=== PATIENT | female | born 1990 | race American Indian/Alaskan Native ===

== ENCOUNTER 2020-12-04 15:26 | Emergency (ER) | payer SELFPAY ==
[2020-12-04 16:56] VITALS: BP 131/82
--- NOTE | 2020-12-04 17:28 | Emergency Department Report ---
ED Lower Extremity HPI - General Chief Complaint: Extremity Injury, Lower Stated Complaint: LT ANKLE PAIN Time Seen by Provider: 12/04/20 17:25 Source: patient Mode of arrival: Ambulatory Limitations: No Limitations - History of Present Illness Initial Comments: Patient is a 30-year-old female presents emergency room complaints of a left ankle injury that occurred last night. Patient states that she was going up the stairs outside and she tripped and fell down approximately 3 steps. She states that she had a inversion injury of her ankle. She states that she felt her ankle "crack". She has associated left ankle pain and swelling. She is ambulatory but states that she has pain with ambulation. She denies any numbness or weakness. She denies ever injuring the past. No past medical history. No allergies medications. Last menstrual cycle ended last month, she denies any possibility of . - Related Data Previous Rx's Medication Instructions Recorded Last Taken Type Acetaminophen [Tylenol] 650 mg PO Q8HR PRN #20 capsule 12/04/20 Unknown Rx Ibuprofen [Motrin 600 MG tab] 600 mg PO Q8H PRN #20 tablet 12/04/20 Unknown Rx Allergies Allergy/AdvReac Type Severity Reaction Status Date / Time No Known Allergies Allergy Unverified 12/04/20 16:51 ED Review of Systems ROS: Stated complaint: LT ANKLE PAIN Other details as noted in HPI Comment: All other systems reviewed and negative ED Past Medical Hx - Past Medical History Previous Medical History?: No - Surgical History Past Surgical History?: No - Medications Home Medications: Home Medications Medication Instructions Recorded Confirmed Last Taken Type Acetaminophen [Tylenol] 650 mg PO Q8HR PRN #20 capsule 12/04/20 Unknown Rx Ibuprofen [Motrin 600 MG tab] 600 mg PO Q8H PRN #20 tablet 12/04/20 Unknown Rx ED Physical Exam - General Limitations: No Limitations General appearance: alert, in no apparent distress - Head Head exam: Present: atraumatic, normocephalic - Eye Eye exam: Present: normal appearance - ENT ENT exam: Present: mucous membranes moist - Respiratory Respiratory exam: Absent: respiratory distress, accessory muscle use - Extremities Exam Extremities exam: Present: other (ttp to the bilateral malleoli, left greater than right, edema present diffusely to the ankle, no ttp of the dorsal foot or digits, no ttp of the knee, decreased ROM of the left ankle secondary to pain, neurovascularly intact) - Neurological Exam Neurological exam: Present: alert, oriented X3 - Psychiatric Psychiatric exam: Present: normal affect, normal mood - Skin Skin exam: Present: warm, dry, intact ED Course Vital Signs 12/04/20 16:55 Temperature 98.7 F Pulse Rate 84 Respiratory 20 Rate Blood Pressure 131/82 O2 Sat by Pulse 100 Oximetry ED Lower Extremity MDM - Radiology Data Radiology results: report reviewed Ordering Physician: ORSALINDA MAHAN Date of Service: 12/04/20 Procedure(s): XR foot 3+V LT Accession Number(s): [id number] cc: ROSALINDA MAHAN Fluoro Time In Minutes: LEFT FOOT 3 VIEW(S) INDICATION / CLINICAL INFORMATION: Fall going up the stairs, left ankle pain and swelling COMPARISON: None available. FINDINGS: BONES / JOINT(S): No acute fracture or subluxation. No significant arthritis. SOFT TISSUES: No significant abnormality. ADDITIONAL FINDINGS: None. Signer Name: Whit Fabian MD Signed: 12/04/2020 6:24 PM Workstation Name: [id number] Transcribed By: SS Dictated By: WHIT FABIAN Electronically Authenticated By: WHIT FABIAN Signed Date/Time: 12/04/201823 DD/ 21 TD/TT: Ordering Physician: ROSALINDA MAHAN Date of Service: 12/04/20 Procedure(s): XR ankle 3+V LT Accession Number(s): [id number] cc: ROSALINDA MAHAN Fluoro Time In Minutes: LEFT ANKLE 4 VIEW(S) INDICATION / CLINICAL INFORMATION: Fall going up the stairs, left ankle pain and edema COMPARISON: None available. FINDINGS: BONES / JOINT(S): No acute fracture or subluxation. No significant arthritis. SOFT TISSUES: There is soft tissue edema throughout the ankle, predominantly on the lateral aspect. ADDITIONAL FINDINGS: None. Signer Name: Whit Fabian MD Signed: 12/04/2020 6:25 PM Workstation Name: [id number] Transcribed By: SS Dictated By: WHIT FABIAN Electronically Authenticated By: WHIT FABIAN Signed Date/Time: 12/04/201824 DD/ 23 TD/TT: Print - Medical Decision Making Patient is a 30-year-old female presents emergency room complaints of a left ankle injury that occurred last night. Patient states that she was going up the stairs outside and she tripped and fell down approximately 3 steps. She states that she had a inversion injury of her ankle. She states that she felt her ankle "crack". She has associated left ankle pain and swelling. She is ambulatory but states that she has pain with ambulation. She denies any numbness or weakness. She denies ever injuring the past. No past medical history. No allergies medications. Last menstrual cycle ended last month, she denies any possibility of . Vitals are normal. On exam:ttp to the bilateral malleoli, left greater than right, edema present diffusely to the ankle, no ttp of the dorsal foot or digits, no ttp of the knee, decreased ROM of the left ankle secondary to pain, neurovascularly intact. XR left ankle: BONES / JOINT(S): No acute fracture or subluxation. No significant arthritis. SOFT TISSUES: There is soft tissue edema throughout the ankle, predominantly on the lateral aspect. ADDITIONAL FINDINGS: None. Symptoms most likely related to ankle sprain. Discussed all results with patient. Discussed the importance of orthopedic follow-up. Patient placed in ankle stirrup splint and given crutches by nurse and remained neurovascularly intact. Advised patient not to bear weight. Patient given prescription for ibuprofen and Tylenol. Advised patient please take medication as prescribed. ice for 15 minutes at a time, rest, elevation of the leg. do not bear weight on the leg. follow up with an orthopedic doctor. return to the emergency room for any new or worsening symptoms. Critical care attestation.: If time is entered above; I have spent that time in minutes in the direct care of this critically ill patient, excluding procedure time. ED Disposition Clinical Impression: Left ankle sprain Qualifiers: Encounter type: initial encounter Involved ligament of ankle: unspecified ligament Qualified Code(s): S93.402A - Sprain of unspecified ligament of left ankle, initial encounter Disposition: TO HOME OR SELFCARE Is pt being admited?: No Does the pt Need Aspirin: No Condition: Stable Instructions: Ankle Sprain Additional Instructions: please take medication as prescribed. ice for 15 minutes at a time, rest, elevation of the leg. do not bear weight on the leg. follow up with an orthopedic doctor. return to the emergency room for any new or worsening symptoms. Prescriptions: Ibuprofen [Motrin 600 MG tab] 600 mg PO Q8H PRN #20 tablet PRN Reason: Pain Acetaminophen [Tylenol] 650 mg PO Q8HR PRN #20 capsule PRN Reason: pain Referrals: PRIMARY CAREMD [Primary Care Provider] - 2-3 Days JAMES PLUNKETT MD [Staff Physician] - 2-3 Days [facility] [Provider Group] - 2-3 Days Time of Disposition: 18:45 Print Language: KAZAKH
--- NOTE | 2020-12-04 18:28 | XRay Report ---
LEFT FOOT 3 VIEW(S) INDICATION / CLINICAL INFORMATION: Fall going up the stairs, left ankle pain and swelling COMPARISON: None available. FINDINGS: BONES / JOINT(S): No acute fracture or subluxation. No significant arthritis. SOFT TISSUES: No significant abnormality. ADDITIONAL FINDINGS: None. Signer Name: Jamie Fabian MD Signed: 12/04/2020 6:24 PM Workstation Name: [id number]
--- NOTE | 2020-12-04 18:29 | XRay Report ---
LEFT ANKLE 4 VIEW(S) INDICATION / CLINICAL INFORMATION: Fall going up the stairs, left ankle pain and edema COMPARISON: None available. FINDINGS: BONES / JOINT(S): No acute fracture or subluxation. No significant arthritis. SOFT TISSUES: There is soft tissue edema throughout the ankle, predominantly on the lateral aspect. ADDITIONAL FINDINGS: None. Signer Name: Jamie Fabian MD Signed: 12/04/2020 6:25 PM Workstation Name: [id number]
== END 2020-12-04 19:50 | disposition home or self-care (01) ==
LOC: ED 15:26
DX: S93.402A Sprain of unspecified ligament of left ankle, initial encounter (principal); Z79.899 Other long term (current) drug therapy; W01.0XXA Fall on same level from slipping, tripping and stumbling without subsequent striking against object, initial encounter; Y93.89 Activity, other specified; Y92.89 Other specified places as the place of occurrence of the external cause; Y99.8 Other external cause status